=== PATIENT | female | born 1990 | race Caucasian/White ===

== ENCOUNTER 2016-11-18 15:00 | Emergency (ER) ==
--- NOTE | 2016-11-18 15:53 | PROVIDER DOCUMENTATION ---
HPI-General Adult - General Source: patient - History of Present Illness -Gen Adult Nature of Presenting Problems: 26 y/o female presents to the ER with complaint of blood in stool. Pt states that following a bowel movement she noticed minimal blood on stool. Onset/Duration: reports: just prior to arrival <Belen Garvin - Last Filed: 11/18/16 17:00> <Filippo Sutherland - Last Filed: 11/19/16 16:34> - General Chief Complaint: Rectal Bleeding Stated Complaint: BLOOD IN STOOL Time Seen by Provider: 11/18/16 15:28 Allergies/Adverse Reactions: Patient Allergies Allergy/AdvReac Type Severity Reaction Status Date / Time Latex, Natural Rubber Allergy ITCHING Verified 11/18/16 15:22 codeine AdvReac VOMITING Verified 11/18/16 15:22 Home Medications: Home Medication List Medication Instructions Recorded Confirmed Last Taken Type Citalopram [Celexa] 20 mg PO DAILY 05/16/16 11/18/16 11/18/16 07:00 History Hydrocortisone [Proctozone-Hc] 30 gm RC 2-4XDAY PRN PRN #1 11/18/16 Unknown Rx [email or web address] Review of Systems - Adult - REVIEW OF SYSTEMS - ADULT Constitutional: denies: chills, fever Eyes: reports: no symptoms reported Ears, Nose, Mouth & Throat: reports: no symptoms reported Cardiovascular: reports: no symptoms reported Respiratory: reports: no symptoms reported Gastrointestinal: reports: rectal bleeding (blood in stool) Genitourinary: reports: no symptoms reported Musculoskeletal: reports: no symptoms reported Integumentary: reports: no symptoms reported Neurological: reports: no symptoms reported Psychiatric: reports: no symptoms reported Endocrine: reports: no symptoms reported Hematologic/Lymphatic: reports: no symptoms reported Allergic/Immunologic: reports: no symptoms reported All Other Systems: Reviewed and Negative <Belen Garvin - Last Filed: 11/18/16 17:00> Past History - Adult - PAST MEDICAL HISTORY-ADULT Review of Records: reports: Nursing Assessment Review, Medications Reviewed Psychiatric: reports: anxiety, depression - PRIOR SURGERIES/PROCEDURES Surgical/Procedure History: reports: tonsillectomy - IMMUNIZATION STATUS Childhood Immunizations: See Nurse Assessment Flu Vaccine: See Nurse Assessment - FAMILY HISTORY Family History: reviewed, not pertinent <Belen Garvin - Last Filed: 11/18/16 17:00> Physical Exam-General - CONSTITUTIONAL General Appearance: alert, no apparent distress - EYES Eyes: PERRL/EOMI, pink conjunctivae - HEAD, EARS, NOSE, MOUTH & THROAT HENMT: moist mucous membranes, normal ENT inspection - NECK Neck: supple, normal inspection - RESPIRATORY Respiratory: lungs clear, normal breath sounds - CARDIOVASCULAR Cardiovascular: normal peripheral pulses, regular rate, rhythm - GENITOURINARY Rectal Exam: normal exam, hemorrhoids (small) - MUSCULOSKELETAL Back Exam: no CVA tenderness, no vertebral tenderness Extremity: non-tender, normal gait - SKIN Integumentary: normal color, warm/dry - NEUROLOGIC Neurologic: grossly normal, no motor/sensory deficits - PSYCHIATRIC Psych/Mental Status: normal mood/affect, normal thought content, normal thought process, oriented x 3 <Belen Garvin - Last Filed: 11/18/16 17:00> - GENITOURINARY Rectal Exam: other (Chaperoned by Laina garvin) <Filippo Sutherland - Last Filed: 11/19/16 16:34> Departure - Departure Time of Disposition Order: 16:59 Certified Medical Emergency: Emergent <Belen Garvin - Last Filed: 11/18/16 17:00> <Filippo Sutherland - Last Filed: 11/19/16 16:34> - Departure DIAGNOSIS: External hemorrhoid Disposition: HOME 01 Condition: Stable Additional Instructions: ED Follow Up Instructions: You have been treated by a care provider in the Emergency Department. These instructions are being provided to you so you can have an understanding of how to care for yourself upon discharge. Upon discharge from the Emergency Department, you are responsible for making arrangements for follow-up care by a physician of your choice. Take all prescribed medications as directed. Return to the Emergency Department immediately for any new or worsening symptoms. You may call the Physician Referral phone number at [phone] to obtain a list of Physicians who are taking new patients. Prescriptions: Hydrocortisone [Proctozone-Hc] 30 gm RC 2-4XDAY PRN PRN #1 [email or web address] PRN Reason: irritation Referrals: Marii Armstrong MD [Primary Care Provider] - Instructions: Hemorrhoids, [id number] Attestation - Scribe Verification/Attestation Scribe:: Belen Garvin Acting as Scribe for:: Filippo Sutherland Scribe documention review:: This chart was documented by a scribe and accurately reflects the service the provider performed and the decisions made by the provider. <Belen Garvin - Last Filed: 11/18/16 17:00> - Scribe Verification/Attestation Scribe:: Belen Garvin Scribe documention review:: This chart was documented by a scribe and accurately reflects the service the provider performed and the decisions made by the provider. <Filippo Sutherland - Last Filed: 11/19/16 16:34> Physician Attestation
[2016-11-18 15:59] LABS: MANUAL DIFF NEEDED? NO
[2016-11-18 16:01] LABS: BASO% 0.2 % (0.0-0.8); EOS# 0.07 X1000 (0.0-0.7); EOS% 1.1 % (0.0-10.0); HEMATOCRIT 43.8 % (37.0-47.0); HEMOGLOBIN 15.3 g/dL (12.0-16.0); LYMPH# 2.07 X1000 (1.2-3.4); LYMPH% 33.8 % (20.5-51.1); MCH 32.2 PG (27-31); MCHC 34.9 g/dL (33-37); MCV 92.2 FL (81-99); MONO# 0.56 X1000 (0.11-0.59); MONO% 9.2 % (1.7-9.3); MPV 11.3 FL (7.4-10.4); NEUT% 55.7 % (42.2-75.2); PLT 153 X1000 (130-400); RBC 4.75 XMIL (4.2-5.4)
[2016-11-18 18:04] VITALS: BP 97/61
== END 2016-11-18 18:03 | disposition home or self-care (01) ==
LOC: ED 15:00
DX: K64.4 Residual hemorrhoidal skin tags (principal); K92.1 Melena; K62.5 Hemorrhage of anus and rectum; F41.9 Anxiety disorder, unspecified; F32.9 Major depressive disorder, single episode, unspecified; Z79.899 Other long term (current) drug therapy
CPT/HCPCS: 36415; 82270; 85025; 99283